=== PATIENT | female | born 1985 | race Caucasian/White ===

== ENCOUNTER 2017-07-03 17:18 | Emergency (ER) | payer BC ==
[2017-07-03 18:09] LABS: Absolute Lymphocytes (CBC) 1.4 K/uL (0.7-4.9); Absolute Monocytes 0.8 K/uL (0.1-1.3); Absolute Neutrophil 15.5 K/uL (1.8-8.0); Basophils % 0.2 % (0-1.3); Eosinophils % 0.6 % (0-4.4); Hematocrit 42.6 % (36.0-45.0); Lymphocytes % 7.8 % (15.3-44.8); MCV 96.6 fL (80-100); MPV 8.1 fL (7.6-11.3); Monocytes % 4.3 % (3.3-12.3); RBC Red Blood Cell Count 4.41 M/uL (3.86-4.86)
[2017-07-03 18:16] LABS: BUN Blood Urea Nitrogen 10 mg/dL (6-20); Bicarbonate 25 mEq/L (21-31); Glucose Level 131 mg/dL (65-120); Potassium 3.3 mEq/L (3.6-5.0); Sodium Level 137 mEq/L (135-145)
[2017-07-03] MEDS ORDERED: ONDANSETRON 4 MG/2 ML VIAL ONE (18:20)
[2017-07-03] MEDS ORDERED: NA CHLORIDE 0.9% 1,000 ML ONE (18:20)
[2017-07-03] MEDS ORDERED: FENTANYL CITR 100 MCG/2 ML ONE (18:20)
[2017-07-03] MEDS ORDERED: POTASSIUM CL SA 10 MEQ TAB PO ONE (19:31)
--- NOTE | 2017-07-03 19:34 | EDPHYS ---
Physician Documentation [facility] Name: Sarah Lane Age: 32 yrs Sex: Female : 1985 Arrival Date: 07/03/2017 Time: 17:19 Bed 14 Private MD: ED Physician Isaac Claudio HPI: 07/03 17:47 This 32 yrs old Female presents to ER via Wheelchair with complaints of louisa Vomiting, Vaginal Bleeding, + Preg <12wks. 17:47 The patient presents to the emergency department with nausea, vomiting, that is louisa continuous. Onset: The symptoms/episode began/occurred 2 day(s) ago. Possible causes: . The symptoms are aggravated by nothing. The symptoms are alleviated by nothing. Associated signs and symptoms: Pertinent positives: nausea, vomiting. Severity of symptoms: At their worst the symptoms were mild in the emergency department the symptoms are unchanged. The patient has not experienced similar symptoms in the past. 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 - Social history:: Smoking status: Patient uses tobacco products, smokes one pack cigarettes per day. - Family history:: not pertinent. ROS: 17:47 Constitutional: Negative for fever, chills, and weight loss, Eyes: Negative for injury, louisa pain, redness, and discharge, ENT: Negative for injury, pain, and discharge, Neck: Negative for injury, pain, and swelling, Cardiovascular: Negative for chest pain, palpitations, and edema, Respiratory: Negative for shortness of breath, cough, wheezing, and pleuritic chest pain, Back: Negative for injury and pain, MS/Extremity: Negative for injury and deformity, Skin: Negative for injury, rash, and discoloration, Neuro: Negative for headache, weakness, numbness, tingling, and seizure, Psych: Negative for depression, anxiety, suicide ideation, homicidal ideation, and hallucinations, Allergy/Immunology: Negative for hives, rash, and allergies, Endocrine: Negative for neck swelling, polydipsia, polyuria, polyphagia, and marked weight changes. 17:47 Abdomen/GI: Positive for abdominal pain, nausea, vomiting, of the right lower quadrant and left lower quadrant. 17:47 : Positive for pelvic pain, vaginal bleeding. Exam: 17:47 Constitutional: This is a well developed, well nourished patient who is awake, alert, louisa and in no acute distress. Head/Face: Normocephalic, atraumatic. Eyes: Pupils equal round and reactive to light, extra-ocular motions intact. Lids and lashes normal. Conjunctiva and sclera are non-icteric and not injected. Cornea within normal limits. Periorbital areas with no swelling, redness, or edema. ENT: Nares patent. No nasal discharge, no septal abnormalities noted. Tympanic membranes are normal and external auditory canals are clear. Oropharynx with no redness, swelling, or masses, exudates, or evidence of obstruction, uvula midline. Mucous membranes moist. Neck: Trachea midline, no thyromegaly or masses palpated, and no cervical lymphadenopathy. Supple, full range of motion without nuchal rigidity, or vertebral point tenderness. No Meningismus. Chest/axilla: Normal chest wall appearance and motion. Nontender with no deformity. No lesions are appreciated. Cardiovascular: Regular rate and rhythm with a normal S1 and S2. No gallops, murmurs, or rubs. Normal PMI, no JVD. No pulse deficits. Respiratory: Lungs have equal breath sounds bilaterally, clear to auscultation and percussion. No rales, rhonchi or wheezes noted. No increased work of breathing, no retractions or nasal flaring. Back: No spinal tenderness. No costovertebral tenderness. Full range of motion. Female : Normal external genitalia. Skin: Warm, dry with normal turgor. Normal color with no rashes, no lesions, and no evidence of cellulitis. MS/ Extremity: Pulses equal, no cyanosis. Neurovascular intact. Full, normal range of motion. Neuro: Awake and alert, GCS 15, oriented to person, place, time, and situation. Cranial nerves II-XII grossly intact. Motor strength 5/5 in all extremities. Sensory grossly intact. Cerebellar exam normal. Normal gait. 17:47 Respiratory: the patient does not display signs of respiratory distress. 17:47 Abdomen/GI: Inspection: abdomen appears normal, Bowel sounds: normal, Palpation: abdomen is soft and non-tender, Liver: no appreciated palpable abnormalities, Hernia: not appreciated. 19:38 : Pelvic Exam: External exam: is normal, Speculum exam: scant bleeding, os that is louisa open, 8 x 100 mcg tabs inserted intravaginally. Vital Signs: 17:23 BP 75 / 52; Pulse 98; Resp 19; Temp 97.4(O); Pulse Ox 100% on R/A; Weight 53.52 kg; la1 Height 5 ft. 2 in. (157.48 cm); 17:46 BP 104 / 65; Pulse 79; Resp 18; ss 18:47 BP 94 / 62; Pulse 75; Resp 16 S; Pulse Ox 100% on R/A; jl7 19:27 BP 103 / 65 Supine; Pulse 101; Resp 16; Pulse Ox 99% on R/A; aa1 19:29 BP 107 / 60 Sitting; Pulse 99; aa1 19:31 BP 101 / 67 Standing; Pulse 103; aa1 20:20 BP 105 / 66; Pulse 98; Resp 16; Temp 97.7; Pulse Ox 99% on R/A; Pain 4/10; aa1 17:23 Body Mass Index 21.58 (53.52 kg, 157.48 cm) la1 MDM: 17:30 Patient medically screened. [facility] 17:55 Data reviewed: vital signs, nurses notes, lab test result(s), EKG, radiologic studies, [facility] CT scan, plain films. 07/03 17:42 Order name: Quantitative Hcg; Complete Time: 19:05 [facility] 07/03 17:42 Order name: Abo/rh Typing; Complete Time: 19:05 [facility] 07/03 17:42 Order name: Basic Metabolic Panel; Complete Time: 19:05 [facility] 07/03 17:42 Order name: CBC with Diff [facility] 07/03 18:34 Order name: ABO/RH no charge; Complete Time: 19:05 [facility] 07/03 19:59 Order name: CBC Smear Scan [facility] 07/03 17:42 Order name: US Transvaginal Study (Probe) [facility] 07/03 17:42 Order name: Urine Test (obtain specimen); Complete Time: 18:22 [facility] 07/03 17:42 Order name: IV Saline Lock; Complete Time: 18:22 [facility] 07/03 17:42 Order name: Labs collected and sent; Complete Time: 18:22 [facility] 07/03 17:42 Order name: NPO; Complete Time: 18:22 [facility] 07/03 17:42 Order name: Urine Dipstick-Ancillary (obtain specimen); Complete Time: 18:22 [facility] 07/03 19:15 Order name: Orthostatics; Complete Time: 19:41 [facility] Administered Medications: 18:05 Drug: NS 0.9% 1000 ml Route: IV; Rate: 1 bolus; Site: right antecubital; jl7 19:17 Follow up: IV Status: Completed infusion jl7 18:05 Drug: Zofran 4 mg Route: IVP; Site: right antecubital; jl7 18:30 Follow up: Response: No adverse reaction; Nausea is decreased jl7 18:08 Drug: fentaNYL (PF) 25 mcg Route: IVP; Site: right antecubital; jl7 18:45 Follow up: Response: Pain is decreased jl7 19:16 Drug: Potassium Chloride 20 mEq Route: PO; jl7 19:56 Follow up: Response: No adverse reaction aa1 19:36 Not Given (Physician Discretion): NS 0.9% 1000 ml IV at 1 bolus Per protocol; 1000 mL aa1 bolus 19:38 Not Given (Other Intervention Used): Rocephin - (cefTRIAXone) 1 grams IVPB once over 30 aa1 mins; (mix in 50 mL NS) 19:50 Drug: Rocephin 1 grams Route: IV; Rate: calculated rate; Site: right antecubital; aa1 19:56 Follow up: IV Status: Completed infusion aa1 19:56 Drug: Cytotec 800 mcg Route: PO; aa1 20:20 Follow up: Response: No adverse reaction aa1 Disposition: 07/03/17 19:33 Discharged to Home. Impression: Vomiting, Incomplete spontaneous with other complications - pain, vomiting, Elevated white blood cell count, Hypokalemia. - Condition is Stable. - Discharge Instructions: Incomplete Miscarriage, Nausea and Vomiting, Miscarriage, Nausea and Vomiting, [id number], Miscarriage, [id number]. - Prescriptions for Tylenol- Codeine #3 300-30 mg Oral Tablet - take 1 tablet by ORAL route every 4 hours As needed; 24 tablet. Zofran 4 mg Oral Tablet - take 1 tablet by ORAL route every 12 hours As needed; 20 tablet. Keflex 500 mg Oral Capsule - take 1 capsule by ORAL route every 6 hours for 5 days; 20 capsule. - Medication Reconciliation Form, Thank You Letter, Antibiotic Education, Prescription Opioid Use form. - Follow up: Jolie Dubose MD; When: 2 - 3 days; Reason: Recheck today's complaints, Continuance of care, Re-evaluation by your physician. - Problem is new. - Symptoms have improved. Signatures: Dispatcher [employer] EDJud Dallas RN RN aa1 Isaac Claudio MD MD cha Attema, Lee, RN RN la1 Ayana Tolbert RN RN jl7
--- NOTE | 2017-07-03 19:34 | ER ---
Nurse's Notes [facility] Name: Sarah Lane Age: 32 yrs Sex: Female : 1985 Arrival Date: 07/03/2017 Time: 17:19 Bed 14 Private MD: Diagnosis: Vomiting;Incomplete spontaneous with other complications-pain, vomiting;Elevated white blood cell count;Hypokalemia Presentation: 07/03 17:20 Presenting complaint: Patient states: I have been having lower abd cramps and vomiting la1 since Thursday/Thursday, the cramping and bleed is getting worse. Transition of care: patient was not received from another setting of care. Onset of symptoms was July 03, 2017. Care prior to arrival: None. 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 - Social history:: Smoking status: Patient uses tobacco products, smokes one pack cigarettes per day. - Family history:: not pertinent. Screenin:45 Abuse screen: Denies threats or abuse. Denies injuries from another. Nutritional jl7 screening: No deficits noted. Tuberculosis screening: No symptoms or risk factors identified. Fall Risk IV access (20 points). Total Conrad Fall Scale indicates No Risk (0-24 pts). Assessment: 17:45 General: Appears uncomfortable, Behavior is cooperative. Pain: Complains of pain in jl7 left lower quadrant and right lower quadrant Pain does not radiate. Pain currently is 10 out of 10 on a pain scale. Quality of pain is described as crampy, Pain began 2-3 days ago. Is continuous. Neuro: Level of Consciousness is awake, alert, obeys commands, Oriented to person, place, time, situation. Cardiovascular: Patient's skin is warm and dry. Respiratory: Airway is patent Respiratory effort is even, unlabored, Respiratory pattern is regular, symmetrical. GI: Abdomen is flat, non-distended, Bowel sounds present X 4 quads. Reports lower abdominal pain. : No signs and/or symptoms were reported regarding the genitourinary system. EENT: No signs and/or symptoms were reported regarding the EENT system. Derm: Skin is pink, warm \T\ dry. Musculoskeletal: No signs and/or symptoms reported regarding the musculoskeletal system. 18:47 Reassessment: Patient and/or family updated on plan of care and expected duration. Pain jl7 level reassessed. Patient is alert, oriented x 3, equal unlabored respirations, skin warm/dry/pink. Patient states feeling better. Patient states symptoms have improved. 19:50 Reassessment: Patient appears in no apparent distress at this time. Patient is alert, aa1 oriented x 3, equal unlabored respirations, skin warm/dry/pink. Dr. Claudio at bedside discussing POC with pt \T\ family. Cytotec inserted vaginally at this time by . 20:03 Reassessment: Per MD, allow Cytotec to dissolve then ok to d/c pt. aa1 20:20 Reassessment: Patient appears in no apparent distress at this time. Patient is alert, aa1 oriented x 3, equal unlabored respirations, skin warm/dry/pink. Discussed d/c \T\ f/u instructions with pt \T\ family; denies questions or concerns at this time. Vital Signs: 17:23 BP 75 / 52; Pulse 98; Resp 19; Temp 97.4(O); Pulse Ox 100% on R/A; Weight 53.52 kg; la1 Height 5 ft. 2 in. (157.48 cm); 17:46 BP 104 / 65; Pulse 79; Resp 18; ss 18:47 BP 94 / 62; Pulse 75; Resp 16 S; Pulse Ox 100% on R/A; jl7 19:27 BP 103 / 65 Supine; Pulse 101; Resp 16; Pulse Ox 99% on R/A; aa1 19:29 BP 107 / 60 Sitting; Pulse 99; aa1 19:31 BP 101 / 67 Standing; Pulse 103; aa1 20:20 BP 105 / 66; Pulse 98; Resp 16; Temp 97.7; Pulse Ox 99% on R/A; Pain 4/10; aa1 17:23 Body Mass Index 21.58 (53.52 kg, 157.48 cm) la1 ED Course: 17:19 Patient arrived in ED. as 17:21 Triage completed. la1 17:21 Arm band placed on left wrist. la1 17:30 Isaac Claudio MD is Attending Physician. louisa 17:45 Patient has correct armband on for positive identification. Placed in gown. Bed in low jl7 position. Call light in reach. Side rails up X 1. playground monitor on. Pulse ox on. NIBP on. Warm blanket given. 17:45 Initial lab(s) drawn, by me, sent to lab. Inserted saline lock: 20 gauge in right jl7 antecubital area, using aseptic technique. Blood collected. 17:49 Patient taken to ultrasound. tessie 18:21 Ayana Tolbert RN is Primary Nurse. jl7 18:44 Patient moved back from ultrasound. tessie 19:17 Report given to JAMEL Renner. jl7 19:32 Jolie Dubose MD is Referral Physician. louisa 19:50 Assist provider with pelvic exam: Set up pelvic tray. Performed by Isaac Claudio MD aa1 Patient tolerated well. 20:20 IV discontinued, intact, bleeding controlled, No redness/swelling at site. Pressure aa1 dressing applied. 20:49 US Transvaginal Study (Probe) In Process Unspecified. EDMS Administered Medications: 18:05 Drug: NS 0.9% 1000 ml Route: IV; Rate: 1 bolus; Site: right antecubital; jl7 19:17 Follow up: IV Status: Completed infusion jl7 18:05 Drug: Zofran 4 mg Route: IVP; Site: right antecubital; jl7 18:30 Follow up: Response: No adverse reaction; Nausea is decreased jl7 18:08 Drug: fentaNYL (PF) 25 mcg Route: IVP; Site: right antecubital; jl7 18:45 Follow up: Response: Pain is decreased jl7 19:16 Drug: Potassium Chloride 20 mEq Route: PO; jl7 19:56 Follow up: Response: No adverse reaction aa1 19:36 Not Given (Physician Discretion): NS 0.9% 1000 ml IV at 1 bolus Per protocol; 1000 mL aa1 bolus 19:38 Not Given (Other Intervention Used): Rocephin - (cefTRIAXone) 1 grams IVPB once over 30 aa1 mins; (mix in 50 mL NS) 19:50 Drug: Rocephin 1 grams Route: IV; Rate: calculated rate; Site: right antecubital; aa1 19:56 Follow up: IV Status: Completed infusion aa 19:56 Drug: Cytotec 800 mcg Route: PO; aa1 20:20 Follow up: Response: No adverse reaction aa1 Outcome: 19:33 Discharge ordered by . louisa 20:25 Discharged to home ambulatory, with family, with significant other. aa1 20:25 Condition: good 20:25 Discharge instructions given to patient, family, significant other, Instructed on discharge instructions, follow up and referral plans. medication usage, Demonstrated understanding of instructions, follow-up care, medications, Prescriptions given X 3. 20:27 Patient left the ED. aa1 Signatures: Dispatcher [employer] EDMS Jud Farley RN RN aa1 Isaac Claudio MD MD cha Martinez, Amelia as Smirch, Shelby, RN RN ss Attema, Lee, RN RN la1 Sanchez Casas jd, Jahala, RN RN jl7 Corrections: (The following items were deleted from the chart) 17:23 17:20 Acuity: JE 3 la1 la1
[2017-07-03] MEDS ORDERED: CEFTRIAXONE/SWI 1gm 1 GM/10 ML SYR ONE (19:57)
[2017-07-03 19:59] LABS: Blood Morphology Comment NOT SEEN (NOT SEEN); Platelet Estimate ADEQ; Urine White Blood Cell Casts OK
[2017-07-03] MEDS ORDERED: miSOPROStol 100 MCG TAB ONE (19:59)
--- NOTE | 2017-07-03 21:11 | RAD REPORT ---
EXAM DESCRIPTION: US - Transvaginal Study Probe - 07/03/2017 8:48 pm CLINICAL HISTORY: Abdominal pain vaginal bleeding/ COMPARISON: none FINDINGS: The uterus measures 10 x 4 x 5cm. The endometrial stripe measures 1.5 centimeters and is h eterogeneous. Fluid collections are present within the cervical canal. A gestational sac is not seen. The ovaries are normal in size and echotexture. No significant free fluid is seen. IMPRESSION: Incomplete
== END 2017-07-03 20:27 | disposition home or self-care (01) ==
LOC: ER 17:18
DX: O03.39 Incomplete spontaneous abortion with other complications (principal); D72.829 Elevated white blood cell count, unspecified; E87.6 Hypokalemia; O99.332 Smoking (tobacco) complicating pregnancy, second trimester; Z3A.12 12 weeks gestation of pregnancy
CPT/HCPCS: 36415; 76830; 80048; 84702; 85025; 86900; 86901; 96361; 96374; 96375; 99285; J0696; J2405; J3010; J7030